=== PATIENT | female | born 1990 | race Caucasian/White ===

== ENCOUNTER 2017-03-05 12:41 | Emergency (ER) | payer OTHER ==
[~2017-03-05] VITALS: Ht 170.2 cm; Wt 81.8 kg
[~2017-03-05 12:41] MED LIST: LORTAB 5/500 501 TAB PO; NAPROSYN500 MG PO; NO HOME MEDICATIONS; NORCO 325 MG-51 TAB PO; ZITHROMAX Z PA250 MG PO
[2017-03-05 12:44] VITALS: BP 106/62; TEMP 97.8
[2017-03-05 14:13] VITALS: PULSE 56
== END 2017-03-05 14:14 | disposition home or self-care (01) ==
LOC: COL.ER 12:41
DX: G43.909 Migraine, unspecified, not intractable, without status migrainosus (principal)
CPT/HCPCS: J1200; J1885; J2765; J7030

== ENCOUNTER → 2018-02-27 | Outpatient (CLI) | payer OTHER | LOC: COL.RAD 02-23 13:30 | DX: S73.101A Unspecified sprain of right hip, initial encounter (principal) | CPT/HCPCS: A9585; Q9967 ==

== ENCOUNTER 2020-02-15 02:18 | Emergency (ER) | payer OTHER ==
[~2020-02-15] VITALS: Ht 170.2 cm; Wt 88.6 kg
[2020-02-15 02:27] VITALS: BP 125/86; TEMP 97.5
[2020-02-15] MEDS ORDERED: DOXYCYCLINE HY100 MG PO (03:03)
[2020-02-15 03:10] VITALS: PULSE 86
== END 2020-02-15 03:10 | disposition home or self-care (01) ==
LOC: COL.ER 02:18
DX: S01.85XA Open bite of other part of head, initial encounter (principal); F17.210 Nicotine dependence, cigarettes, uncomplicated; Z23 Encounter for immunization; W54.0XXA Bitten by dog, initial encounter; Y92.009 Unspecified place in unspecified non-institutional (private) residence as the place of occurrence of the external cause

== ENCOUNTER 2020-05-13 15:02 | Emergency (ER) | payer OTHER ==
[~2020-05-13] VITALS: Ht 170.2 cm; Wt 88.6 kg
[~2020-05-13 15:02] MED LIST changes: +DOXYCYCLINE HY100 MG PO
[2020-05-13 15:06] VITALS: BP 105/72; TEMP 98.8
[2020-05-13 15:39] LABS: STREP SCREEN NEGATIVE
[2020-05-13] MEDS ORDERED: CLEOCIN HCL300 MG PO (15:56)
[2020-05-13 16:11] VITALS: PULSE 83
== END 2020-05-13 16:11 | disposition home or self-care (01) ==
LOC: COL.ER 15:02
PROVIDERS: Nurse Practitioner
DX: J02.9 Acute pharyngitis, unspecified (principal); F17.210 Nicotine dependence, cigarettes, uncomplicated